=== PATIENT | male | born 1970 | race Two or more races ===

== ENCOUNTER 2020-04-29 04:26 | Inpatient (IN) | payer MEDICAID, OTHER ==
[~2020-04-29] VITALS: Ht 182.9 cm; Wt 81.8 kg
[2020-04-29] MEDS ORDERED: DexAMETHasone SOD PHOS 10MG/1ML VIAL INJ IV ONE (05:15)
[2020-04-29] MEDS ORDERED: DOXYCYCLINE 100MG/250ML 250 ML IV ONE (05:15)
[2020-04-29 05:28] LABS: Basophils # (auto) 0.1 10 ^3/uL (0-0.2); Basophils % (auto) 1.2 % (0.0-2.0); Eosinophils # (auto) 0.5 10 ^3/uL (0-0.8); Eosinophils % (auto) 4.3 % (0.0-7.0); Hematocrit 25.7 % (41.0-53.0); Hemoglobin 8.6 g/dL (13.5-17.5); Lymphocytes # (auto) 2.1 10 ^3/uL (0.4-5.4); Lymphocytes % (auto) 17.5 % (10.0-50.0); Mean Corpuscular Hemoglobin 28.8 pg (28.0-32.0); Mean Corpuscular Hgb Conc. 33.3 g/dL (32.0-36.0); Mean Corpuscular Volume 86.4 fL (80.0-100.0); Monocytes # (auto) 0.8 10 ^3/uL (0-1.3); Monocytes % (auto) 6.9 % (0.0-12.0); Neutrophils # (auto) 8.4 10 ^3/uL (1.6-8.6); Neutrophils % (auto) 70.1 % (37.0-80.0); Nucleated Red Blood Cells % 0.1 %; Platelet Count (auto) 311 10^3/uL (140-450); Red Blood Cells 2.98 10^6/uL (4.5-5.90); Red Cell Distribution Width 17.9 % (11.8-14.3)
[2020-04-29] MEDS ORDERED: FUROSEMIDE 40 MG/4 ML VIAL IV ONE ×3 (05:30→05:45)
[2020-04-29 05:38] LABS: Albumin 2.8 g/dL (3.4-5.0); BUN/Creatinine Ratio 6.5; Bilirubin, Total 0.4 mg/dL (0.2-1.0); Calcium 8.3 mg/dL (8.5-10.1); Magnesium 2.5 mg/dL (1.6-2.6); Total Protein 8.1 g/dL (6.4-8.2)
[2020-04-29 05:44] LABS: Potassium 6.5 mmol/L (3.5-5.1)
[2020-04-29 06:00] LABS: INR 1.05 (0.9-1.15); Partial Thromboplastin Time 29.9 sec (23.0-31.2)
[2020-04-29] MEDS ORDERED: ALBUTEROL SULF 2.5 MG/0.5ML(0.5%) NEB SOLN NEB ONE ×3 (06:00→14:15)
[2020-04-29] MEDS ORDERED: SODIUM BICARBONATE 8.4% INJ 50ML SYRINGE IV ONE (06:00)
[2020-04-29] MEDS ORDERED: InsuLIN REG 1unit/0.01ml Soln (100units/ml) IV ONE ×2 (06:00→14:15)
[2020-04-29] MEDS ORDERED: DEXTROSE (50%) 50ML SYRG IV ONE ×2 (06:00→14:15)
[2020-04-29 06:15] VITALS: BP 153/92
[2020-04-29] MEDS ORDERED: NITROGLYCERIN 0.4 MG SL TAB SL PRN (08:45)
[2020-04-29] MEDS ORDERED: MORPHINE SULF INJ 2 MG/ML SYRINGE 1ML IV PRN (08:45)
[2020-04-29] MEDS ORDERED: SODIUM ZIRCONIUM CYCL 10 GM PAK PO ONE ×2 (08:45→14:15)
[2020-04-29] MEDS ORDERED: CALCIUM GLUC 4.65meq/50ml D5AE 50 ML IV ONE (08:45)
[2020-04-29] MEDS: cefTRIAXone 1GM/50ML D5W 50 ML IV SCH (09:00)
[2020-04-29 09:32] LABS: Phosphorus 5.9 mg/dL (2.5-4.90); Uric Acid 9.6 mg/dL (3.5-7.2)
[2020-04-29 09:40] VITALS: BP 152/91
[2020-04-29 09:41] LABS: CRP High Sensitivity 6.03 mg/dL (< 0.3)
[2020-04-29] MEDS: AZITHROMYCIN 500MG/ 250ML 250 ML IV SCH (10:00)
[2020-04-29 11:41] LABS: Urine Bacteria NONE SEEN /hpf (None Seen); Urine Blood 2+ /uL (Negative); Urine Specific Gravity 1.013 (1.001-1.035); Urine WBC 3 /hpf (0 - 3)
[2020-04-29 12:07] LABS: Alcohol, Urine < 3.0 mg/dL (0-10); Amphetamine Screen, Urine POSITIVE (NEGATIVE); Barbiturate Scree,Urine NEGATIVE (NEGATIVE); Benzodiazephine Screen, Urine NEGATIVE (NEGATIVE); Cannabinoid Screen, Urine NEGATIVE (NEGATIVE); Cocaine Screen, Urine NEGATIVE (NEGATIVE); Opiate Scree,Urine POSITIVE (NEGATIVE); Phencyclidine Screen, Urine NEGATIVE (NEGATIVE)
[2020-04-29 13:44] LABS: BUN/Creatinine Ratio 6.5; Calcium 8.6 mg/dL (8.5-10.1)
[2020-04-29 14:01] LABS: Potassium 7.5 mmol/L (3.5-5.1)
[2020-04-29] MEDS ORDERED: SODIUM BICARBONATE 8.4 % INJ 50ML VIAL IV ONE (14:15)
[2020-04-29] MEDS: MORPHINE SULF INJ 2 MG/ML SYRINGE 1ML IV PRN ×2 (15:04→21:45)
[2020-04-29] MEDS: BUMETANIDE 2.5mg/10ml (0.25 mg/ml) INJ IV SCH (17:00)
[2020-04-29] MEDS ORDERED: BUMETANIDE 2.5mg/10ml (0.25 mg/ml) INJ IV SCH (18:00)
[2020-04-29 18:04] LABS: Creatinine, Urine 57 mg/dL (30.0-125.0)
[2020-04-29] MEDS: SODIUM BICARBONATE 50ML VIAL 50 ML in SOD CHL 0.45% 1,000 ML IV SCH (18:05)
[2020-04-29] MEDS: CALCIUM ACETATE 667 MG CAP PO SCH (18:05)
[2020-04-29 19:33] LABS: Sodium Urine 76 mmol/L (40-220)
[2020-04-29 20:36] LABS: BUN/Creatinine Ratio 6.5; Calcium 8.4 mg/dL (8.5-10.1)
[2020-04-29 20:56] LABS: Potassium 6.9 mmol/L (3.5-5.1)
[2020-04-29] MEDS: SODIUM ZIRCONIUM CYCL 10 GM PAK PO SCH (21:31)
[2020-04-30] VITALS (40 sets, daily range): BP systolic 79–152; BP diastolic 46–103
[2020-04-30] MEDS: SODIUM BICARBONATE 50ML VIAL 50 ML in SOD CHL 0.45% 1,000 ML IV SCH ×2 (03:15→16:28)
[2020-04-30] MEDS ORDERED: SODIUM BICARBONATE 8.4% INJ 50ML SYRINGE ONE (04:05)
[2020-04-30] MEDS ORDERED: guaiFENesin-DM 100/10mg/5ml SYR PO PRN (05:00)
[2020-04-30] MEDS: BUMETANIDE 2.5mg/10ml (0.25 mg/ml) INJ IV SCH (05:49)
[2020-04-30] MEDS: SODIUM ZIRCONIUM CYCL 10 GM PAK PO SCH ×3 (06:06→21:44)
[2020-04-30] MEDS: MORPHINE SULF INJ 2 MG/ML SYRINGE 1ML IV PRN ×2 (06:06→07:22)
[2020-04-30 07:09] LABS: Basophils # (auto) 0 10 ^3/uL (0-0.2); Eosinophils # (auto) 0 10 ^3/uL (0-0.8); Neutrophils % (auto) 85.9 % (37.0-80.0)
[2020-04-30 07:21] LABS: Basophils % (auto) 0.2 % (0.0-2.0); Eosinophils % (auto) 0.1 % (0.0-7.0); Hematocrit 24.2 % (41.0-53.0); Lymphocytes # (auto) 1.3 10 ^3/uL (0.4-5.4); Lymphocytes % (auto) 7.4 % (10.0-50.0); Mean Corpuscular Hemoglobin 28.9 pg (28.0-32.0); Mean Corpuscular Volume 87.4 fL (80.0-100.0); Monocytes # (auto) 1.2 10 ^3/uL (0-1.3); Monocytes % (auto) 6.4 % (0.0-12.0); Neutrophils # (auto) 15.3 10 ^3/uL (1.6-8.6); Platelet Count (auto) 294 10^3/uL (140-450); Red Blood Cells 2.77 10^6/uL (4.5-5.90); Red Cell Distribution Width 18.3 % (11.8-14.3); White Blood Cell 17.8 10^3/uL (4.4-10.8)
[2020-04-30] MEDS ORDERED: LORazepam 2MG/ML-1ML VIAL ONE ×2 (07:25→08:38)
[2020-04-30] MEDS ORDERED: LORazepam 2MG/ML-1ML VIAL IV ONE (07:30)
[2020-04-30 07:46] LABS: Albumin 2.6 g/dL (3.4-5.0); BUN/Creatinine Ratio 6.9; Bilirubin, Total 0.4 mg/dL (0.2-1.0); Total Protein 7.7 g/dL (6.4-8.2)
[2020-04-30 07:48] LABS: Potassium 6.3 mmol/L (3.5-5.1)
[2020-04-30] MEDS ORDERED: LABETALOL HCL 5 MG/ML 4ML SYRINGE IV ONE ×2 (07:52→08:00)
[2020-04-30] MEDS: CALCIUM ACETATE 667 MG CAP PO SCH ×3 (08:00→18:00)
[2020-04-30] MEDS ORDERED: ALBUTEROL SULF 2.5 MG/0.5ML(0.5%) NEB SOLN NEB ONE (08:15)
[2020-04-30] MEDS ORDERED: InsuLIN REG 1unit/0.01ml Soln (100units/ml) IV ONE ×2 (08:15→14:45)
[2020-04-30] MEDS ORDERED: DEXTROSE (50%) 50ML SYRG IV ONE ×2 (08:15→14:45)
[2020-04-30] MEDS ORDERED: SODIUM BICARBONATE 8.4 % INJ 50ML VIAL IV ONE ×2 (08:15→20:45)
[2020-04-30] MEDS ORDERED: LORazepam 2MG/ML-1ML VIAL IV PRN (08:15)
[2020-04-30] MEDS: LABETALOL HCL 200 MG TAB PO SCH ×3 (08:35→21:46)
[2020-04-30] MEDS: cefTRIAXone 1GM/50ML D5W 50 ML IV SCH (09:04)
[2020-04-30] MEDS ORDERED: ROCURONIUM 10MG/ML 10ML VIAL IV ONE ×3 (09:38→09:45)
[2020-04-30] MEDS ORDERED: ETOMIDATE (2MG/ML) 20ML VIAL IV ONE ×3 (09:39→09:45)
[2020-04-30] MEDS ORDERED: fentaNYL Drip 2500mCg/250mlNS 250 ML IV ONE (09:50)
[2020-04-30] MEDS ORDERED: MIDAZOLAM DRIP 50 mg/50mL 50 ML IV ONE (09:51)
[2020-04-30] MEDS: fentaNYL Drip 2500mCg/250mlNS 250 ML IV SCH (10:15)
[2020-04-30] MEDS: MIDAZOLAM DRIP 50 mg/50mL 50 ML IV SCH ×3 (10:16→21:45)
[2020-04-30] MEDS: AZITHROMYCIN 500MG/ 250ML 250 ML IV SCH (10:16)
[2020-04-30] MEDS ORDERED: SODIUM BICARBONATE 50ML VIAL 50 ML in SOD CHL 0.45% 1,000 ML IV SCH (12:30)
[2020-04-30 13:16] LABS: Calcium 8.1 mg/dL (8.5-10.1)
[2020-04-30 13:19] LABS: BUN/Creatinine Ratio 7.3
[2020-04-30 13:27] LABS: Potassium 7.6 mmol/L (3.5-5.1)
[2020-04-30] MEDS ORDERED: CALCIUM GLUC 4.65meq/50ml D5AE 50 ML IV ONE (14:45)
[2020-04-30] MEDS ORDERED: BUMETANIDE 2.5mg/10ml (0.25 mg/ml) INJ IV ONE (14:45)
[2020-04-30] MEDS ORDERED: HEPARIN SODIUM (PORCINE) 5000 UNITS/ML 1ML VIAL ONE (14:57)
[2020-04-30] MEDS ORDERED: HEPARIN SODIUM (PORCINE) 5000 UNITS/ML 1ML VIAL IV ONE (15:15)
[2020-04-30] MEDS ORDERED: PROPOFOL 100 ML IV ONE (15:56)
[2020-04-30] MEDS: PROPOFOL 100 ML IV SCH (16:57)
[2020-04-30] MEDS ORDERED: NOREPINEPHRINE 8 MG/250ML KIT 250 ML IV ONE (17:09)
[2020-04-30] MEDS: NOREPINEPHRINE 8 MG/250ML KIT 250 ML IV SCH (17:15)
[2020-04-30] MEDS: TAMSULOSIN HYDROCHLORIDE 0.4 MG CAP PO SCH (18:00)
[2020-04-30 21:02] LABS: Calcium 8.1 mg/dL (8.5-10.1)
[2020-04-30 21:05] LABS: BUN/Creatinine Ratio 7.6
[2020-04-30 21:12] LABS: Potassium 6.9 mmol/L (3.5-5.1)
[2020-04-30] MEDS ORDERED: EPOETIN ALFA 10,000 UNIT/1 ML VIAL SC ONE (21:38)
[2020-04-30] MEDS ORDERED: SODIUM CHL 0.9% 1000 ML BAG XX ONE (21:45)
[2020-05-01] VITALS (107 sets, daily range): BP systolic 91–155; BP diastolic 53–100
[2020-05-01] MEDS: SODIUM BICARBONATE 50ML VIAL 50 ML in SOD CHL 0.45% 1,000 ML IV SCH ×5 (00:09→22:09)
[2020-05-01] MEDS: MIDAZOLAM DRIP 50 mg/50mL 50 ML IV SCH (01:00)
[2020-05-01 04:59] LABS: Basophils # (auto) 0.1 10 ^3/uL (0-0.2); Eosinophils # (auto) 0.1 10 ^3/uL (0-0.8); Lymphocytes # (auto) 1.4 10 ^3/uL (0.4-5.4); Monocytes # (auto) 0.5 10 ^3/uL (0-1.3); Red Cell Distribution Width 18.2 % (11.8-14.3)
[2020-05-01 05:01] LABS: Basophils % (auto) 0.7 % (0.0-2.0); Hematocrit 18.4 % (41.0-53.0); Lymphocytes % (auto) 15.5 % (10.0-50.0); Mean Corpuscular Hemoglobin 29.1 pg (28.0-32.0); Mean Corpuscular Hgb Conc. 33.8 g/dL (32.0-36.0); Monocytes % (auto) 4.9 % (0.0-12.0); Neutrophils # (auto) 7.3 10 ^3/uL (1.6-8.6); Neutrophils % (auto) 77.9 % (37.0-80.0); Nucleated Red Blood Cells % 0.1 %; Platelet Count (auto) 254 10^3/uL (140-450); Red Blood Cells 2.14 10^6/uL (4.5-5.90); White Blood Cell 9.3 10^3/uL (4.4-10.8)
[2020-05-01 05:08] LABS: Hemoglobin 6.2 g/dL (13.5-17.5)
[2020-05-01 05:13] LABS: Potassium 4.7 mmol/L (3.5-5.1)
[2020-05-01 05:20] LABS: BUN/Creatinine Ratio 7.6; Calcium 7.7 mg/dL (8.5-10.1)
[2020-05-01] MEDS: SODIUM ZIRCONIUM CYCL 10 GM PAK PO SCH (06:53)
[2020-05-01] MEDS: CALCIUM ACETATE 667 MG CAP PO SCH ×3 (08:00→18:00)
[2020-05-01] MEDS: cefTRIAXone 1GM/50ML D5W 50 ML IV SCH (09:18)
[2020-05-01] MEDS: LABETALOL HCL 200 MG TAB PO SCH ×2 (10:00→21:30)
[2020-05-01] MEDS: fentaNYL Drip 2500mCg/250mlNS 250 ML IV SCH ×2 (10:00→12:20)
[2020-05-01] MEDS: AZITHROMYCIN 500MG/ 250ML 250 ML IV SCH (10:42)
[2020-05-01] MEDS: BUMETANIDE 2.5mg/10ml (0.25 mg/ml) INJ IV SCH (10:43)
[2020-05-01] MEDS: PROPOFOL 100 ML IV SCH (16:30)
[2020-05-01] MEDS: NOREPINEPHRINE 8 MG/250ML KIT 250 ML IV SCH (16:44)
[2020-05-01] MEDS: TAMSULOSIN HYDROCHLORIDE 0.4 MG CAP PO SCH (18:00)
[2020-05-02] VITALS (98 sets, daily range): BP systolic 111–171; BP diastolic 69–103
[2020-05-02] MEDS: SODIUM BICARBONATE 50ML VIAL 50 ML in SOD CHL 0.45% 1,000 ML IV SCH ×3 (05:27→20:10)
[2020-05-02 06:19] LABS: Basophils # (auto) 0.1 10 ^3/uL (0-0.2); Eosinophils # (auto) 0.3 10 ^3/uL (0-0.8); Hemoglobin 7.5 g/dL (13.5-17.5); Lymphocytes # (auto) 1.5 10 ^3/uL (0.4-5.4); Neutrophils # (auto) 4.9 10 ^3/uL (1.6-8.6); White Blood Cell 7.5 10^3/uL (4.4-10.8)
[2020-05-02 06:22] LABS: Basophils % (auto) 1.6 % (0.0-2.0); Eosinophils % (auto) 4.1 % (0.0-7.0); Hematocrit 22.1 % (41.0-53.0); Lymphocytes % (auto) 19.8 % (10.0-50.0); Mean Corpuscular Hemoglobin 29.1 pg (28.0-32.0); Mean Corpuscular Hgb Conc. 33.9 g/dL (32.0-36.0); Mean Corpuscular Volume 85.7 fL (80.0-100.0); Monocytes # (auto) 0.7 10 ^3/uL (0-1.3); Monocytes % (auto) 9.7 % (0.0-12.0); Neutrophils % (auto) 64.8 % (37.0-80.0); Platelet Count (auto) 212 10^3/uL (140-450); Red Blood Cells 2.57 10^6/uL (4.5-5.90); Red Cell Distribution Width 17.9 % (11.8-14.3)
[2020-05-02 06:37] LABS: Calcium 7.8 mg/dL (8.5-10.1); Potassium 3.7 mmol/L (3.5-5.1)
[2020-05-02] MEDS: CALCIUM ACETATE 667 MG CAP PO SCH ×3 (08:00→17:59)
[2020-05-02] MEDS: cefTRIAXone 1GM/50ML D5W 50 ML IV SCH (08:56)
[2020-05-02] MEDS: BUMETANIDE 2.5mg/10ml (0.25 mg/ml) INJ IV SCH (09:47)
[2020-05-02] MEDS: LABETALOL HCL 200 MG TAB PO SCH ×2 (09:47→21:20)
[2020-05-02] MEDS: AZITHROMYCIN 500MG/ 250ML 250 ML IV SCH (09:47)
[2020-05-02 11:16] LABS: Hepatitis B Surface Antigen Negative (Negative)
[2020-05-02 11:18] LABS: Hepatitis C Antibody Positive (Negative)
[2020-05-02] MEDS: MIDAZOLAM DRIP 50 mg/50mL 50 ML IV SCH (12:20)
[2020-05-02] MEDS: NOREPINEPHRINE 8 MG/250ML KIT 250 ML IV SCH (17:45)
[2020-05-02] MEDS: PROPOFOL 100 ML IV SCH (17:58)
[2020-05-02] MEDS: TAMSULOSIN HYDROCHLORIDE 0.4 MG CAP PO SCH (17:59)
[2020-05-03] VITALS (74 sets, daily range): BP systolic 130–177; BP diastolic 83–108
[2020-05-03 05:24] LABS: Basophils # (auto) 0.1 10 ^3/uL (0-0.2); Basophils % (auto) 0.9 % (0.0-2.0); Eosinophils # (auto) 0.2 10 ^3/uL (0-0.8); Eosinophils % (auto) 2.1 % (0.0-7.0); Hematocrit 24.3 % (41.0-53.0); Hemoglobin 8.1 g/dL (13.5-17.5); Lymphocytes # (auto) 1.4 10 ^3/uL (0.4-5.4); Lymphocytes % (auto) 12.9 % (10.0-50.0); Mean Corpuscular Hemoglobin 28.9 pg (28.0-32.0); Mean Corpuscular Hgb Conc. 33.2 g/dL (32.0-36.0); Monocytes # (auto) 0.9 10 ^3/uL (0-1.3); Monocytes % (auto) 8.7 % (0.0-12.0); Neutrophils # (auto) 8.2 10 ^3/uL (1.6-8.6); Neutrophils % (auto) 75.4 % (37.0-80.0); Platelet Count (auto) 313 10^3/uL (140-450); Red Cell Distribution Width 17.7 % (11.8-14.3); White Blood Cell 10.9 10^3/uL (4.4-10.8)
[2020-05-03 05:31] LABS: BUN/Creatinine Ratio 8.3; Calcium 7.7 mg/dL (8.5-10.1); Potassium 3.4 mmol/L (3.5-5.1)
[2020-05-03] MEDS: SODIUM BICARBONATE 50ML VIAL 50 ML in SOD CHL 0.45% 1,000 ML IV SCH (06:01)
[2020-05-03] MEDS: hydrALAZINE HCL 20 MG/ML VL IV PRN (06:57)
[2020-05-03] MEDS: CALCIUM ACETATE 667 MG CAP PO SCH ×3 (09:04→17:40)
[2020-05-03] MEDS: BUMETANIDE 2.5mg/10ml (0.25 mg/ml) INJ IV SCH (09:04)
[2020-05-03] MEDS: cefTRIAXone 1GM/50ML D5W 50 ML IV SCH (09:04)
[2020-05-03] MEDS: AZITHROMYCIN 500MG/ 250ML 250 ML IV SCH (09:06)
[2020-05-03] MEDS: MIDAZOLAM DRIP 50 mg/50mL 50 ML IV SCH (09:06)
[2020-05-03] MEDS: fentaNYL Drip 2500mCg/250mlNS 250 ML IV SCH (09:08)
[2020-05-03] MEDS ORDERED: D5W 5% 1,000 ML IV ONE (12:30)
[2020-05-03] MEDS: POTASSIUM CHL 20MEQ/100ML 100 ML IV SCH ×2 (12:40→14:27)
[2020-05-03] MEDS: LABETALOL HCL 200 MG TAB PO SCH ×2 (13:10→21:14)
[2020-05-03] MEDS: PROPOFOL 100 ML IV SCH (16:30)
[2020-05-03] MEDS: TAMSULOSIN HYDROCHLORIDE 0.4 MG CAP PO SCH (17:41)
[2020-05-03] MEDS: NOREPINEPHRINE 8 MG/250ML KIT 250 ML IV SCH (17:45)
[2020-05-03] MEDS ORDERED: EPOETIN ALFA 10,000 UNIT/1 ML VIAL IV ONE (21:00)
[2020-05-04] VITALS (10 sets, daily range): BP systolic 127–164; BP diastolic 79–101
[2020-05-04] MEDS: hydrALAZINE HCL 20 MG/ML VL IV PRN ×2 (03:17→08:47)
[2020-05-04 05:40] LABS: Basophils # (auto) 0.1 10 ^3/uL (0-0.2); Basophils % (auto) 0.9 % (0.0-2.0); Eosinophils # (auto) 0.4 10 ^3/uL (0-0.8); Eosinophils % (auto) 3.7 % (0.0-7.0); Hematocrit 27.7 % (41.0-53.0); Lymphocytes # (auto) 1.5 10 ^3/uL (0.4-5.4); Lymphocytes % (auto) 13.3 % (10.0-50.0); Mean Corpuscular Hemoglobin 28.1 pg (28.0-32.0); Mean Corpuscular Hgb Conc. 32.4 g/dL (32.0-36.0); Mean Corpuscular Volume 86.6 fL (80.0-100.0); Monocytes # (auto) 0.9 10 ^3/uL (0-1.3); Monocytes % (auto) 8.1 % (0.0-12.0); Neutrophils # (auto) 8.5 10 ^3/uL (1.6-8.6); Nucleated Red Blood Cells % 0.2 %; Platelet Count (auto) 230 10^3/uL (140-450); Red Cell Distribution Width 17.8 % (11.8-14.3); White Blood Cell 11.5 10^3/uL (4.4-10.8)
[2020-05-04 05:44] LABS: BUN/Creatinine Ratio 7.1; Calcium 7.8 mg/dL (8.5-10.1); Potassium 3.3 mmol/L (3.5-5.1)
[2020-05-04] MEDS: CALCIUM ACETATE 667 MG CAP PO SCH ×3 (08:09→17:28)
[2020-05-04] MEDS: cefTRIAXone 1GM/50ML D5W 50 ML IV SCH (08:46)
[2020-05-04] MEDS: MORPHINE SULF INJ 2 MG/ML SYRINGE 1ML IV PRN ×3 (09:10→21:41)
[2020-05-04] MEDS: AZITHROMYCIN 500MG/ 250ML 250 ML IV SCH (10:21)
[2020-05-04] MEDS: LABETALOL HCL 200 MG TAB PO SCH ×2 (10:21→21:41)
[2020-05-04] MEDS ORDERED: POTASSIUM EFFERVESENT TAB 25 MEQ PO ONE (13:45)
[2020-05-04] MEDS: TAMSULOSIN HYDROCHLORIDE 0.4 MG CAP PO SCH (17:28)
[2020-05-04] MEDS: HYDROcodone-ACET 5/325MG TAB PO PRN (17:37)
[2020-05-05] MEDS: HYDROcodone-ACET 5/325MG TAB PO PRN ×4 (00:47→21:06)
[2020-05-05] MEDS: MORPHINE SULF INJ 2 MG/ML SYRINGE 1ML IV PRN ×4 (04:35→22:56)
[2020-05-05 04:47] VITALS: BP 135/89
[2020-05-05 07:56] LABS: Basophils # (auto) 0.1 10 ^3/uL (0-0.2); Basophils % (auto) 0.8 % (0.0-2.0); Eosinophils # (auto) 0.5 10 ^3/uL (0-0.8); Eosinophils % (auto) 3.9 % (0.0-7.0); Hematocrit 26.5 % (41.0-53.0); Hemoglobin 8.8 g/dL (13.5-17.5); Lymphocytes % (auto) 16.2 % (10.0-50.0); Mean Corpuscular Hemoglobin 28.7 pg (28.0-32.0); Mean Corpuscular Hgb Conc. 33.2 g/dL (32.0-36.0); Mean Corpuscular Volume 86.3 fL (80.0-100.0); Monocytes # (auto) 1.4 10 ^3/uL (0-1.3); Neutrophils # (auto) 8.4 10 ^3/uL (1.6-8.6); Neutrophils % (auto) 68.1 % (37.0-80.0); Nucleated Red Blood Cells % 0.1 %; Platelet Count (auto) 240 10^3/uL (140-450); Red Blood Cells 3.07 10^6/uL (4.5-5.90); Red Cell Distribution Width 18.1 % (11.8-14.3); White Blood Cell 12.4 10^3/uL (4.4-10.8)
[2020-05-05] MEDS: CALCIUM ACETATE 667 MG CAP PO SCH ×3 (08:04→17:37)
[2020-05-05 08:17] LABS: Potassium 3.5 mmol/L (3.5-5.1)
[2020-05-05] MEDS: cefTRIAXone 1GM/50ML D5W 50 ML IV SCH (08:20)
[2020-05-05 08:25] LABS: Albumin 2.5 g/dL (3.4-5.0); BUN/Creatinine Ratio 5.6
[2020-05-05 08:27] LABS: Bilirubin, Total 0.3 mg/dL (0.2-1.0); Total Protein 7.1 g/dL (6.4-8.2)
[2020-05-05 09:00] VITALS: BP 143/73
[2020-05-05] MEDS: AZITHROMYCIN 500MG/ 250ML 250 ML IV SCH (09:55)
[2020-05-05] MEDS: LABETALOL HCL 200 MG TAB PO SCH ×2 (09:55→21:31)
[2020-05-05] MEDS ORDERED: BUMETANIDE 2.5mg/10ml (0.25 mg/ml) INJ IV SCH ×2 (10:00→22:00)
[2020-05-05 13:00] VITALS: BP 123/76
[2020-05-05 17:00] VITALS: BP 142/92
[2020-05-05] MEDS: TAMSULOSIN HYDROCHLORIDE 0.4 MG CAP PO SCH (17:37)
[2020-05-05 22:00] VITALS: BP 144/90
[2020-05-05] MEDS ORDERED: CIPROFLOXACIN HYDROCHLORIDE 250 MG TAB PO SCH (22:00)
[2020-05-06] MEDS: HYDROcodone-ACET 5/325MG TAB PO PRN (03:24)
[2020-05-06 05:00] VITALS: BP 134/88
[2020-05-06] MEDS: MORPHINE SULF INJ 2 MG/ML SYRINGE 1ML IV PRN (05:00)
[2020-05-06 06:04] LABS: Basophils # (auto) 0.1 10 ^3/uL (0-0.2); Lymphocytes # (auto) 1.9 10 ^3/uL (0.4-5.4); Monocytes # (auto) 1.5 10 ^3/uL (0-1.3); Nucleated Red Blood Cells % 0.1 %
[2020-05-06 06:07] LABS: Eosinophils # (auto) 0.6 10 ^3/uL (0-0.8); Eosinophils % (auto) 4.2 % (0.0-7.0); Hematocrit 24.9 % (41.0-53.0); Hemoglobin 8.4 g/dL (13.5-17.5); Lymphocytes % (auto) 13.5 % (10.0-50.0); Mean Corpuscular Hemoglobin 29.1 pg (28.0-32.0); Mean Corpuscular Hgb Conc. 33.7 g/dL (32.0-36.0); Mean Corpuscular Volume 86.5 fL (80.0-100.0); Monocytes % (auto) 11.2 % (0.0-12.0); Neutrophils # (auto) 9.6 10 ^3/uL (1.6-8.6); Neutrophils % (auto) 70.1 % (37.0-80.0); Platelet Count (auto) 238 10^3/uL (140-450); Red Blood Cells 2.87 10^6/uL (4.5-5.90); Red Cell Distribution Width 17.9 % (11.8-14.3); White Blood Cell 13.8 10^3/uL (4.4-10.8)
[2020-05-06 06:35] LABS: BUN/Creatinine Ratio 6.9; Calcium 7.7 mg/dL (8.5-10.1); Potassium 3.7 mmol/L (3.5-5.1)
[2020-05-06] MEDS: CALCIUM ACETATE 667 MG CAP PO SCH (08:00)
[2020-05-06] MEDS: cefTRIAXone 1GM/50ML D5W 50 ML IV SCH (08:52)
[2020-05-06 09:00] VITALS: BP 125/83
== END 2020-05-06 11:00 | disposition left against medical advice (07) | DRG 133 ==
LOC: ER 04:26 → EDBD 04:26 → TELE 04:27 → ICU WEST 04-30 15:15 → TELE-EAST 05-04 07:55
PROVIDERS: ADMIT Nurse Practitioner Acute Care; ATTEND Internal Medicine Pulmonary Disease
PROC: 5A09357 Assistance with Respiratory Ventilation, Less than 24 Consecutive Hours, Continuous Positive Airway Pressure (ICD-10-PCS; 2020-04-29)
PROC: 5A1945Z Respiratory Ventilation, 24-96 Consecutive Hours (ICD-10-PCS; principal; 2020-04-30)
PROC: 0BH17EZ Insertion of Endotracheal Airway into Trachea, Via Natural or Artificial Opening (ICD-10-PCS; 2020-04-30)
PROC: 5A1D70Z Performance of Urinary Filtration, Intermittent, Less than 6 Hours Per Day (ICD-10-PCS; 2020-04-30)
PROC: 5A09357 Assistance with Respiratory Ventilation, Less than 24 Consecutive Hours, Continuous Positive Airway Pressure (ICD-10-PCS; 2020-04-30)
PROC: 02HV33Z Insertion of Infusion Device into Superior Vena Cava, Percutaneous Approach (ICD-10-PCS; 2020-04-30)
PROC: 30233N1 Transfusion of Nonautologous Red Blood Cells into Peripheral Vein, Percutaneous Approach (ICD-10-PCS; 2020-05-01)
PROC: 5A1D70Z Performance of Urinary Filtration, Intermittent, Less than 6 Hours Per Day (ICD-10-PCS; 2020-05-03)
PROC: 02PYX3Z Removal of Infusion Device from Great Vessel, External Approach (ICD-10-PCS; 2020-05-06)
DX: J96.01 Acute respiratory failure with hypoxia (principal); J18.9 Pneumonia, unspecified organism; N13.30 Unspecified hydronephrosis; N13.9 Obstructive and reflux uropathy, unspecified; I50.9 Heart failure, unspecified; Z20.822 Contact with and (suspected) exposure to COVID-19; E87.5 Hyperkalemia; N17.9 Acute kidney failure, unspecified; D72.829 Elevated white blood cell count, unspecified; E87.2 Acidosis; D64.9 Anemia, unspecified; N32.0 Bladder-neck obstruction; Z53.29 Procedure and treatment not carried out because of patient's decision for other reasons; D62 Acute posthemorrhagic anemia; E87.0 Hyperosmolality and hypernatremia; E87.6 Hypokalemia; N18.6 End stage renal disease; R65.10 Systemic inflammatory response syndrome (SIRS) of non-infectious origin without acute organ dysfunction
CPT/HCPCS: 36415; 36600; 71045; 71250; 74176; 76775; 80048; 80053; 80307; 81001; 82306; 82550; 82570; 82728; 82805; 82962; 83036; 83605; 83615; 83735; 83880; 83970; 84100; 84156; 84300; 84484; 84550; 85025; 85379; 85610; 85730; 86141; 86803; 86850; 86900; 86901; 86920; 87040; 87070; 87077; 87081; 87186; 87205; 87340; 87426; 90935; 93005; 93306; 93970; 94002; 94003; 94640; 94660; 96365; 96366; 96375; 96376; 99291; A4565; G0378; J0610; J0696; J0885; J1100; J1642; J2250; J2704; J3480; J3490

== ENCOUNTER 2020-09-09 06:11 | Emergency (ER) | payer MEDICAID ==
[~2020-09-09] VITALS: Ht 182.9 cm; Wt 72.6 kg
[2020-09-09 07:36] LABS: Eosinophils # (auto) 0 10 ^3/uL (0-0.8); Lymphocytes # (auto) 0.2 10 ^3/uL (0.4-5.4); Red Cell Distribution Width 16.4 % (11.8-14.3)
[2020-09-09 07:41] LABS: Basophils # (auto) 0.1 10 ^3/uL (0-0.2); Basophils % (auto) 0.6 % (0.0-2.0); Eosinophils % (auto) 0.1 % (0.0-7.0); Hematocrit 19.5 % (41.0-53.0); Lymphocytes % (auto) 0.9 % (10.0-50.0); Mean Corpuscular Hemoglobin 28.1 pg (28.0-32.0); Mean Corpuscular Hgb Conc. 32.6 g/dL (32.0-36.0); Mean Corpuscular Volume 86.2 fL (80.0-100.0); Monocytes # (auto) 0.6 10 ^3/uL (0-1.3); Monocytes % (auto) 2.9 % (0.0-12.0); Neutrophils # (auto) 21.5 10 ^3/uL (1.6-8.6); Neutrophils % (auto) 95.5 % (37.0-80.0); Platelet Count (auto) 110 10^3/uL (140-450); Red Blood Cells 2.26 10^6/uL (4.5-5.90); White Blood Cell 22.5 10^3/uL (4.4-10.8)
[2020-09-09 07:47] LABS: Hemoglobin 6.4 g/dL (13.5-17.5)
[2020-09-09 07:53] LABS: INR 1.32 (0.9-1.15); Partial Thromboplastin Time 35.6 sec (23.0-31.2)
[2020-09-09 07:59] LABS: Potassium 5.3 mmol/L (3.5-5.1)
[2020-09-09 08:00] LABS: Lactic Acid w/Reflex 2.3 mmol/L (0.4-2.0)
[2020-09-09 08:06] LABS: Albumin 2.2 g/dL (3.4-5.0); BUN/Creatinine Ratio 6.8; Bilirubin, Total 0.6 mg/dL (0.2-1.0); Calcium 7.6 mg/dL (8.5-10.1); Total Protein 6.5 g/dL (6.4-8.2)
[2020-09-09] MEDS ORDERED: InsuLIN REG 1unit/0.01ml Soln (100units/ml) IV ONE (08:45)
[2020-09-09] MEDS ORDERED: SODIUM BICARBONATE 8.4% INJ 50ML SYRINGE IV ONE (08:45)
[2020-09-09] MEDS ORDERED: PIPERACILLIN-TAZOB 3.375GM 100 ML IV ONE (08:45)
[2020-09-09] MEDS ORDERED: ALBUTEROL SULF 2.5 MG/0.5ML(0.5%) NEB SOLN NEB ONE (08:45)
[2020-09-09] MEDS ORDERED: CALCIUM GLUC 1,000mg/50ml-NS 50 ML IV ONE (08:45)
[2020-09-09] MEDS ORDERED: DEXTROSE (50%) 50ML SYRG IV ONE (08:45)
[2020-09-09 09:10] VITALS: BP 129/83
== END 2020-09-09 09:33 | disposition short-term general hospital (02) ==
LOC: ER 06:11
DX: I60.9 Nontraumatic subarachnoid hemorrhage, unspecified (principal); I13.2 Hypertensive heart and chronic kidney disease with heart failure and with stage 5 chronic kidney disease, or end stage renal disease; N18.6 End stage renal disease; I50.9 Heart failure, unspecified; F17.210 Nicotine dependence, cigarettes, uncomplicated; Z99.2 Dependence on renal dialysis
CPT/HCPCS: 36415; 70450; 71045; 80053; 82962; 83605; 83880; 84484; 85025; 85610; 85730; 87040; 87077; 87147; 87186; 93005; 94644; 96365; 96375; 99291; J0610; J2543; J7042